=== PATIENT | female | born 2000 | race Caucasian/White ===

== ENCOUNTER 2021-04-17 16:28 | Emergency (ER) | payer OTHER ==
[2021-04-17 17:31] LABS: HEMOGLOBIN 13.2 gm/dl (12.3-15.3); RED BLOOD COUNT 5.19 M/UL (4.00-5.10); WHITE BLOOD COUNT 5.4 K/UL (4.5-11.0)
[2021-04-17 17:50] LABS: BUN/CREATININE RATIO 16 (0-10)
== END 2021-04-17 19:15 | disposition home or self-care (01) ==
LOC: ER1 16:28
PROVIDERS: Preventive Medicine Occupational Medicine
DX: U07.1 COVID-19 (principal)
CPT/HCPCS: 71045; 80048; 85025; 94664; 99283; J7030